=== PATIENT | male | born 1985 | race Hispanic/Latino ===

== ENCOUNTER 2017-12-16 21:19 | Emergency (ER) | payer OTHER | END 2017-12-16 21:48 | disposition home or self-care (01) | LOC: EDH 21:19 | DX: S09.8XXA Other specified injuries of head, initial encounter (principal); W22.01XA Walked into wall, initial encounter; Y93.89 Activity, other specified; Y92.098 Other place in other non-institutional residence as the place of occurrence of the external cause; Y99.8 Other external cause status ==